=== PATIENT | male | born 1995 | race Caucasian/White ===

== ENCOUNTER 2019-07-25 04:08 | Observation (INO) | payer OTHER ==
[2019-07-25] MEDS ORDERED: NS 0.9% 1000 ML** 1,000 ML IV ONE (04:36)
[2019-07-25] MEDS ORDERED: Ondansetron INJ* 2 MG/ML VIAL IV ONE (04:36)
[2019-07-25] MEDS ORDERED: Morphine 4 MG/ML VIAL (1 ml) 4 MG/ML VIAL IV ONE (04:36)
--- NOTE | 2019-07-25 04:37 | ED ---
Abdominal Pain/Male - HPI Summary HPI Summary: Patient is a 23 y/o M presenting to [facility] with complaints of abdominal pain and N/V. He states that Sx onset around 0030/0100 07/25/19. Sx have been constant and have progressively worsened since onset. Abdominal pain was initially at upper abdomen and migrated to his lower abdomen. Patient denies diarrhea. He reports no abdominal surgeries, patient still has gallbladder and appendix. Patient is on Adderall for ADHD, no other PMHx noted. On triage, pain is rated 6 /10. Home medications and allergies are reviewed. - History of Current Complaint Chief Complaint: EDAbdPain Stated Complaint: VOMMITING PER PT Hx Obtained From: Patient Onset/Duration: Lasting Hours, Still Present Timing: Constant, Lasting Hours Severity Currently: Moderate Pain Intensity: 6 Pain Scale Used: 0-10 Numeric Associated Signs And Symptoms: Positive: Nausea, Vomiting. Negative: Diarrhea - Allergies/Home Medications Allergies/Adverse Reactions: Allergies Allergy/AdvReac Type Severity Reaction Status Date / Time No Known Allergies Allergy Verified 07/25/19 04:13 Home Medications: Home Medications Amphetamine MIXED SALTS TAB* [Adderall TAB*] 15 mg PO SEE INSTRUCTIONS PRN 07/25 [History Confirmed 07/25/19] Dextroamphetamine/Amphetamine [Adderall Xr 30 mg Capsule] 30 mg PO DAILY [History Confirmed 07/25/19] PMH/Surg Hx/FS Hx/Imm Hx Endocrine/Hematology History: Denies: Hx Diabetes Psychiatric History: Reports: Hx Attention Deficit Hyperactivity Disorder Infectious Disease History: No Infectious Disease History: Denies: Traveled Outside the [place] in Last 30 Days - Family History Known Family History: Negative: Blood Disorder - Social History Alcohol Use: Weekly Substance Use Type: Reports: None Smoking Status (MU): Never Smoked Tobacco Review of Systems Negative: Fever - on vitals, temp is 98.8 F Positive: Abdominal Pain, Vomiting, Nausea. Negative: Diarrhea All Other Systems Reviewed And Are Negative: Yes Physical Exam - Summary Physical Exam Summary: Appearance: Well-appearing, Well-nourished, lying in bed comfortably Skin: Warm, dry, no obvious rash Eyes: sclera anicteric, no conjunctival pallor ENT: mucous membranes moist, pharynx appears normal Neck: Supple, nontender Respiratory: Clear to auscultation, no signs of respiratory distress Cardiovascular: Normal S1, S2. No murmurs. Normal distal pulses in tibial and radial bilaterally. Abdomen: There is diffuse abdominal tenderness without any true localization, no involuntary guarding or reboundSoft, normal active bowel sounds present Musculoskeletal: Normal, Strength/ROM Intact Neurological: A&Ox3, awake and alert, mentation is normal, speech is fluent and appropriate Psychiatric: affect is normal, does not appear anxious or depressed Triage Information Reviewed: Yes Vital Signs On Initial Exam: Initial Vitals Temp Pulse Resp BP Pulse Ox 98.8 F 106 16 167/102 100 07/25/19 04:10 07/25/19 04:10 07/25/19 04:10 07/25/19 04:10 07/25/19 04:10 Vital Signs Reviewed: Yes Procedures - Sedation Patient Received Moderate/Deep Sedation with Procedure: No Diagnostics - Vital Signs Vital Signs Temp Pulse Resp BP Pulse Ox 07/25/19 04:10 98.8 F 106 16 167/102 100 - Laboratory Result Diagrams: 07/25/19 04:46 07/25/19 04:46 Lab Statement: Any lab studies that have been ordered have been reviewed, and results considered in the medical decision making process. Abdominal Pain Male Course/Dx - Course Course Of Treatment: Patient is a 23 y/o M presenting to [facility] with complaints of abdominal pain and N/V. He states that Sx onset around 0030/0100 07/25/19. Sx have been constant and have progressively worsened since onset. Abdominal pain was initially at upper abdomen and migrated to his lower abdomen. Patient denies diarrhea. He reports no abdominal surgeries, patient still has gallbladder and appendix. On physical exam, there is diffuse abdominal tenderness without any true localization, no involuntary guarding or rebound. Bloodwork was obtained and within normal limits with exception of absolute neuts of 8.1, glucose 116, AST 12, lipase < 10. During ED course, patient received fluids, Compazine 10 mg IV, Zofran 8 mg IV, and morphine 4 mg IV x2. Patient is signed out to Dr. Denise at 07/25/19 0700 shift change pending results of CT ABD/PEL. ---. Abdominopelvic CT impression: Positive for acute appendicitis. And discussed the case with Dr. Haas from surgery and after his assessment he will be taking the patient OR. Patient is hemodynamically stable alert and oriented 3. - Diagnoses Differential Diagnosis/HQI/PQRI: Appendicitis, Constipation Provider Diagnoses: Acute appendicitis Discharge ED - Sign-Out/Discharge Documenting (check all that apply): Sign-Out Patient Signing out patient TO: Billy Denise - Discharge Plan Condition: Stable Disposition: ADMITTED TO [facility] - Billing Disposition and Condition Condition: STABLE Disposition: Admitted to [facility] - Attestation Statements Document Initiated by Zack: Yes Documenting Faribaibe: PUJA MCCARTHY Provider For Whom Zack is Documenting (Include Credential): MIRNA VILLARREAL MD Scribmary Attestation: PUJA Florentino, scribed for MIRNA VILLARREAL MD on 07/25/19 at 1913. Scribe Documentation Reviewed: Yes Provider Attestation: The documentation as recorded by the PUJA piña accurately reflects the service I personally performed and the decisions made by MIRNA pal MD Status of Scribe Document: Viewed
[2019-07-25 04:52] LABS: ABS Eosinophils 0.1 10^3/ul (0-0.6); ABS Lymphocytes 1.5 10^3/ul (1.0-4.8); ABS Monocytes 0.6 10^3/ul (0-0.8); ABS Neutrophils 8.1 10^3/ul (1.5-7.7); Eosinophil % 0.5 %; Hematocrit 42 % (42-52); Hemoglobin 14.6 g/dL (14.0-18.0); Lymphocyte % 14.5 %; Mean Corpuscular HGB Conc 35 g/dL (31-36); Mean Corpuscular Hemoglobin 29 pg (27-31); Mean Corpuscular Volume 83 fL (80-94); Mean Platelet Volume 7.7 fL (7.4-10.4); Platelet Count 166 10^3/uL (150-450); Red Blood Count 5.11 10^6 /uL (4.18-5.48); Red Cell Distribution Width 12 % (10-15); White Blood Count 10.3 10^3/uL (3.5-10.8)
[2019-07-25 05:10] LABS: ALT 14 U/L (7-52); AST 12 U/L (13-39); Albumin 4.6 g/dL (3.2-5.2); Albumin/Globulin Ratio 1.8 (1-3); Alkaline Phosphatase 34 U/L (34-104); Anion Gap 8 mmol/L (2-11); BUN/Creatinine Ratio 15.5 (8-20); Blood Urea Nitrogen 15 mg/dL (6-24); C Reactive Protein 1.37 mg/L (<8.01); CO2 Carbon Dioxide 27 mmol/L (22-32); Calcium 9.5 mg/dL (8.6-10.3); Chloride 103 mmol/L (101-111); EGFR African American 117.1 (>60); EGFR Non-African American 96.8 (>60); Globulin 2.5 g/dL (2-4); Glucose 116 mg/dL (70-100); Potassium 3.9 mmol/L (3.5-5.0); Sodium 138 mmol/L (135-145); Total Protein 7.1 g/dL (6.4-8.9)
[2019-07-25] MEDS ORDERED: PROCHLORPERAZINE INJ 5 MG/ML 2 ML VIAL IV ONE (05:14)
[2019-07-25] MEDS ORDERED: Morphine 4 MG/ML VIAL (1 ml) 4 MG/ML VIAL IV PRN (05:34)
[2019-07-25] MEDS ORDERED: Iohexol 300* (CONTRAST) 10 ML SDV IV ONE (05:53)
--- NOTE | 2019-07-25 07:48 | ED ---
Progress - Progress Note Progress Note: Receiving signout from Dr. Newman at shift change [address] Abd/Pel results and disposition. CT Abd/Pelvis reveals acute appendicitis. Dr. Haas, Surgery, accepted the patient for admission. The plan was discussed with the patient and he was agreeable with this plan. Course/Dx - Diagnoses Provider Diagnoses: Acute appendicitis Discharge ED - Sign-Out/Discharge Documenting (check all that apply): Patient Departure - Admission to Surgery - Discharge Plan Condition: Stable Disposition: ADMITTED TO [facility] Referrals: No Primary Care Phys,NOPCP [Primary Care Provider] - - Attestation Statements Document Initiated by Scribe: Yes Documenting Scribe: John Yee Provider For Whom Scribe is Documenting (Include Credential): Billy Denise MD Scribe Attestation: IJohn, scribed for Billy Denise MD on 07/25/19 at 0747. Status of Scribe Document: Ready
[2019-07-25] MEDS ORDERED: ceFOXitin 2 GM IVPREMIX* 2 GM/50 ML BAG ONE (08:54)
--- NOTE | 2019-07-25 08:57 | HP ---
H&P (Free Text) History and Physical: CC: Abdominal pain, N/V HPI: 23 yo M without signif PMH presented to [facility] [place] with periumbilical abdominal pain starting around MN last night. Associated N/V and chills. No fever or diarrhea. No similar sx in past. No recent URI sx. No recent travel. Had normal BM. Pain worsened and now is localized to RLQ. He had CT abd/Pel which is c/w acute appendicitis. PMH: ADHD PSH: corrective jaw surgery 2017 Meds: Adderall SH: no tob; +EtOH 1 drink/week; no drugs; Basim senior FH: father-HTN and kidney stones; mother-A&W; no other signif hx ROS: significant for above +/-, otherwise 14 pt review was negative. PE: Vital Signs Temp 98.8 F 07/25/19 04:10 Pulse 135 07/25/19 08:38 Resp 17 07/25/19 05:43 BP 137/76 07/25/19 08:38 Pulse Ox 98 07/25/19 08:38 Gen: NAD HEENT: NCAT; EOMI; no otorhinorrhea Neck: supple; no CHASTITY; trachea M/L Lungs: CTA B; no wheeze Heart: reg s1s2 no murmur Abd: No scars; softly distended; tender in RLQ to deep palp; no Rovsing Ext: warm; no c/c/e Intake & Output 07/24/19 07/25/19 07/25/19 18:59 06:59 18:59 Intake Total 1000 Balance 1000 Weight 175 lb Intake: IV Fluids 1000 Laboratory Results - last 24 hr 07/25/19 07/25/19 07/25/19 04:46 04:46 04:46 WBC 10.3 RBC 5.11 Hgb 14.6 Hct 42 MCV 83 MCH 29 MCHC 35 RDW 12 Plt Count 166 MPV 7.7 Neut % (Auto) 79.1 Lymph % (Auto) 14.5 [place] % (Auto) 5.5 Eos % (Auto) 0.5 Baso % (Auto) 0.4 Absolute Neuts (auto) 8.1 H Absolute Lymphs (auto) 1.5 Absolute Monos (auto) 0.6 Absolute Eos (auto) 0.1 Absolute Basos (auto) 0.0 Absolute Nucleated RBC 0.0 Nucleated RBC % 0.0 Sodium 138 Potassium 3.9 Chloride 103 Carbon Dioxide 27 Anion Gap 8 BUN 15 Creatinine 0.97 Est GFR ( Amer) 117.1 Est GFR (Non-Af Amer) 96.8 BUN/Creatinine Ratio 15.5 Glucose 116 H Lactic Acid 0.7 Calcium 9.5 Total Bilirubin 0.80 AST 12 L ALT 14 Alkaline Phosphatase 34 C-Reactive Protein 1.37 Total Protein 7.1 Albumin 4.6 Globulin 2.5 Albumin/Globulin Ratio 1.8 Lipase < [address] images reviewed. Fluid filled appendix with thick wall and periappendiceal stranding. IMP: Acute appendicitis. Rec/Plan: Laparoscopic appendectomy. Procedure, I/R/B/A and option of no treatment discussed. Risks explained, including, not limited to: bleeding, infection, pain, scars, blood clots, pneumonia, visceral injury and risks of GETA. Expectations regading time off, recovery, return to normal activity discussed. All questions answered. He stated understanding and agrees to proceed.
[2019-07-25] MEDS ORDERED: Sodium Citrate/Citric Acid* 15 ML UDC ONE (08:58)
[2019-07-25] MEDS ORDERED: Midazolam* 1 MG/ML 5 ML VIAL (5 MG) ONE (09:01)
[2019-07-25] MEDS ORDERED: Propofol* 10 MG/ML 20 ML BTL ONE (09:01)
[2019-07-25] MEDS ORDERED: fentaNYL* 50 MCG/ML 2 ML VIAL (100 MCG VIAL) ONE (09:01)
[2019-07-25] MEDS ORDERED: Succinylcholine* 20 MG/ML 10 ML VIAL ONE (09:01)
[2019-07-25] MEDS ORDERED: Lidocaine 2% PF * 5 ML VIAL ONE (09:02)
[2019-07-25] MEDS ORDERED: HYDROcodone/ACETAMIN 5-325 MG* 1 TAB PO PRN (09:12)
[2019-07-25] MEDS ORDERED: fentaNYL* 50 MCG/ML 2 ML VIAL (100 MCG VIAL) IV PRN (09:12)
[2019-07-25] MEDS ORDERED: DiMENhydriNATE IV* 50 MG/ML VIAL IV PUSH PRN (09:12)
[2019-07-25] MEDS ORDERED: Naloxone* 0.4 MG/ML 1 ML VIAL IV PRN (09:12)
[2019-07-25] MEDS ORDERED: oxyCODONE/Acetamin 5/325 MG* TAB PO PRN (09:12)
[2019-07-25] MEDS ORDERED: Sodium Citrate/Citric Acid* 15 ML UDC PO ONE (09:12)
[2019-07-25] MEDS ORDERED: Bupivacaine 0.25% EPI 200,000* 30 ML SDV ONE (09:24)
[2019-07-25] MEDS ORDERED: Phenylephrine 40 MCG/ML SYRINGE ONE (09:46)
[2019-07-25] MEDS ORDERED: KETAMINE HCL* 50 MG/ML 10 ML VIAL ONE (09:46)
[2019-07-25] MEDS ORDERED: HYDROmorphone INJ* 0.5 MG/0.5 ML SYRINGE IV SLOW PU PRN (10:34)
[2019-07-25] MEDS ORDERED: Ondansetron INJ* 2 MG/ML VIAL IV PRN (10:34)
--- NOTE | 2019-07-25 10:50 | OP ---
Operative Report - Blank - Operative Report Date of Operation: 07/25/19 Note: PREOP DX: ACUTE APPENDICITIS POSTOP DX: SAME PROC: LAP APPENDECTOMY SURG:MECENAS ASSIST: NONE ANES: GET; MADDIE EBL: MINIMAL IVF: LR SPEC: APPENDIX DRAIN: NONE COMPL:NONE FINDINGS: ACUTE APPENDICITIS WITHOUT RUPTURE OR GANGRENE
[2019-07-25] MEDS ORDERED: Ketorolac INJ* 30 MG/ML 1 ML VIAL ONE (11:12)
[2019-07-25] MEDS ORDERED: Ketorolac INJ* 30 MG/ML 1 ML VIAL IV PUSH ONE (11:14)
[2019-07-25] MEDS: Lactated Ringers 1000 ML Bag* 1,000 ML IV SCH ×2 (11:47→20:06)
[2019-07-25] MEDS: oxyCODONE/Acetamin 5/325 MG* TAB PO PRN ×3 (13:31→21:39)
--- NOTE | 2019-07-25 17:07 | OP ---
CC: [facility] OPERATIVE REPORT: DATE OF OPERATION: 07/25/19 DATE OF : 89 SURGEON: Sony Haas MD NURSING CLINICAL DIRECTOR: None. ANESTHESIOLOGIST: Dr. Landaverde. ANESTHESIA: General endotracheal. PRE-OP DIAGNOSIS: Acute appendicitis. POST-OP DIAGNOSIS: Acute appendicitis. OPERATIVE PROCEDURE: Laparoscopic appendectomy. ESTIMATED BLOOD LOSS: Minimal. IV FLUIDS: Crystalloid. SPECIMENS: Appendix. DRAINS: None. COMPLICATIONS: None. COUNTS: The instrument, needle, and sponge counts were correct. DESCRIPTION OF PROCEDURE: The patient was brought to the operating room placed on the table supine. Sequential compression devices were placed on both lower extremities. General anesthesia was administered. The abdomen was prepped and draped in usual sterile fashion and he received appropriate intravenous antibiotics. A time-out was performed. Local anesthetic was infiltrated into the skin and soft tissue prior to making each incision. Entry to the abdomen was through a transumbilical vertical incision using an open technique. After accessing the peritoneal cavity, carbon dioxide was insufflated to a pressure of 15 mmHg. Under direct visualization, 5-mm trocars were placed in the suprapubic midline and in the left lower quadrant. The appendix was identified in the right lower quadrant and was dialated with early acute inflammatory changes. 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 After dividing the adhesions, elevating the base of the appendix, it was able to be properly oriented. A window was created in the appendiceal mesentery at the base. The appendix was divided from the cecum with the EndoGIA stapler with kendrick cartridge. The mesentery of the appendix was divided with the EndoGIA stapler with lackey cartridge. The appendix was retrieved using endoscopic retrieval bag. There was an area of fatty tissue in the site of dissection where it was bleeding and this was controlled with a clip placement. After assuring hemostasis, the ports removed under direct visualization and carbon dioxide was released. The abdomen was closed with 0-Vicryl to approximate fascia of the umbilicus. Skin incisions were closed with 4-0 Monocryl in subcuticular fashion and Dermaflex applied. The patient tolerated this procedure well and was extubated uneventfully and he was transferred to recovery in stable condition. [id number]/[id number] #: [id number] SOURAV
[2019-07-25] MEDS: Ibuprofen TAB* 600 MG PO PRN (21:01)
[2019-07-26] MEDS: oxyCODONE/Acetamin 5/325 MG* TAB PO PRN ×2 (03:57→10:06)
[2019-07-26] MEDS: Lactated Ringers 1000 ML Bag* 1,000 ML IV SCH (04:52)
[2019-07-26 07:40] VITALS: BP 109/61
[2019-07-26] MEDS: Ibuprofen TAB* 600 MG PO PRN (08:29)
[2019-07-26] MEDS ORDERED: Influenza VAC *QUAD* 2019-20* 0.5 ML SYRINGE IM ONE (09:00)
[2019-07-26] MEDS ORDERED: Amphetamine/Dextroamph ER(NF) 10 MG CAP.ER PO SCH (09:00)
== END 2019-07-26 10:30 | disposition home or self-care (01) ==
LOC: ED 04:08 → OR 08:47 → SSU 10:34
PROVIDERS: ADMIT Surgery; ATTEND Surgery
DX: K35.80 Unspecified acute appendicitis (principal); R11.2 Nausea with vomiting, unspecified; F90.9 Attention-deficit hyperactivity disorder, unspecified type; Z79.899 Other long term (current) drug therapy; Z23 Encounter for immunization
CPT/HCPCS: 36415; 74177; 80053; 83605; 83690; 85025; 86140; 88304; 90471; 90686; 96361; 96374; 96375; 96376; 99284; A9270-GY; C1776; G0008; G0378; J0330; J0694; J0780; J1885; J2250; J2270; J2405; J2704; J3010; Q9967